=== PATIENT | female | born 1940 | race Caucasian/White ===

== ENCOUNTER 2020-04-10 13:00 | Emergency (ER) | payer MEDICARE, OTHER, SELFPAY ==
[2020-04-10 13:02] VITALS: BP 155/82; PULSE 70; RESP 15; TEMP 37.1; O2SAT 100; BMI 20.5
--- NOTE | 2020-04-10 13:27 | XR_ITS ---
WS: [id number] EXAM: AP CHEST: PORTABLE UPRIGHT DATE OF EXAM: 04/10/2020, 1340 hours COMPARISON: Chest x-ray from 05/04/2019 HISTORY: Patient is 79 years old with a fever. FINDINGS: The cardiac silhouette is normal in size. The mediastinal contours show calcified plaque in the ao rta. Hilar regions are normal.. The pulmonary vascularity is normal. The lungs are clear of infilt rate. There is no effusion or pneumothorax. No acute bony abnormality is seen. XR/XR chest 1V portable [id number] IMPRESSION: No acute pulmonary disease.
--- NOTE | 2020-04-10 13:28 | ECG_ITS ---
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 Measurements Intervals [place] Rate: 87 P: 67 MS: 117 QRS: 5 QRSD: 98 T: 91 QT: 352 QTc: 425 Interpretive Statements SINUS RHYTHM WITH SHORT MS INTERVAL POSSIBLE LEFT ATRIAL ENLARGEMENT [-0.1mV P WAVE IN V1/V2] POSSIBLE SEPTAL MYOCARDIAL INFARCTION , OF INDETERMINATE AGE [30 ms Q WAVE IN V1/V2] MODERATE T-WAVE ABNORMALITY, CONSIDER LATERAL ISCHEMIA [-0.1+ mV T WAVE IN I/aVL/V5/V6] Compared to ECG 05/04/2019 13:58:49 Short MS interval now present T-wave abnormality now present Possible ischemia now present Myocardial infarct finding still present Electronically Signed On 04-10-2020 18:18:07 CDT by Osmany Brizuela M.D. [id number]
[2020-04-10 14:19] LABS: Basophils % 0.2 %; Eosinophils % 0.3 %; Hematocrit 38.7 % (37.0-47.0); Hemoglobin 11.6 g/dL (11.5-15.3); Lymphocytes % 11.3 %; Mean Corpuscular Hemoglobin 29.5 pg (28.0-34.0); Mean Corpuscular Volume 98.5 fL (81-99); Mean Platelet Volume 9.8 fL (7.4-10.4); Monocytes # 1.1 10^3/uL (0.2-0.9); Monocytes % 13.3 %; Neutrophils # 6.39 10^3/uL (1.8-7.7); Neutrophils % 74.6 %; Nucleated Red Blood Cells % 0 %; Platelet Count 240 10^3/cmm (130-400); Red Blood Count 3.93 10^6/uL (4.1-5.3); Red Cell Distribution Width 13.4 % (12.1-15.1); White Blood Count 8.6 10^3/uL (4.0-10.0)
[2020-04-10 14:32] LABS: Add Urine Microscopic? YES; Bilirubin Urine Neg (NEGATIVE); Blood Urine Neg (Negative); Glucose Urine UA Norm (Normal); Ketones Urine Negative (Negative); Leukocyte Esterase Urine Negative (Negative); Nitrate Urine Negative (Negative); Protein Urine Neg (Negative); Urine Appearance Hazy (CLEAR); Urine Color Yellow (Yellow); Urobilinogen Urine 1 mg/dL (Negative); pH Urine 5 (5-7)
[2020-04-10 14:34] LABS: Add Urine Culture? No; Amorphous Sediment Urine 3+; Bacteria Urine TRACE; Mucus Urine TRACE
[2020-04-10 14:45] LABS: Alanine Aminotransferase 11 U/L (0-33); Albumin Level 3.6 g/dL (3.5-5.2); Alkaline Phosphatase 64 IU/L (35-105); Anion Gap 13.1 (5-19); Aspartate Amino Transferase 17 U/L (0-32); Blood Urea Nitrogen 28 mg/dL (8-23); Calcium 8.9 mg/dL (8.5-10.5); Carbon Dioxide 26 mmol/L (22-29); Chloride 114 mmol/L (98-107); Globulin 2.8 g/dL (1.3-4.6); Glucose 114 mg/dL (65-115); Lactic Sepsis W/Reflex 1.2 mmol/L (0.5-2.2); Osmolality Calculated 306 mOsm/kg (285-295); Potassium 4.1 mmol/L (3.5-5.1); Sodium 149 mmol/L (136-145); Total Bilirubin 0.4 mg/dL (0.15-1.2); Total Protein 6.4 g/dL (6.6-8.7)
[2020-04-10 14:46] LABS: Troponin(5th) Baseline 32 ng/L (0-10)
--- NOTE | 2020-04-10 15:28 | ECG_ITS ---
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 Measurements Intervals [place] Rate: 79 P: 55 DE: 125 QRS: 12 QRSD: 96 T: 97 QT: 387 QTc: 444 Interpretive Statements SINUS RHYTHM POSSIBLE LEFT ATRIAL ENLARGEMENT [-0.1mV P WAVE IN V1/V2] INCOMPLETE RIGHT BUNDLE BRANCH BLOCK [90+ ms QRS DURATION, TERMINAL R IN V1/V2, 40+ ms S IN I/aVL/V4/V5/V6] POSSIBLE LEFT VENTRICULAR HYPERTROPHY [VOLTAGE CRITERIA PLUS LAE OR QRS WIDENING] POSSIBLE SEPTAL MYOCARDIAL INFARCTION , OF INDETERMINATE AGE [30 ms Q WAVE IN V1/V2] Compared to ECG 04/10/2020 13:51:20 T-wave abnormality no longer present Possible ischemia no longer present Myocardial infarct finding still present Electronically Signed On 04-11-2020 12:05:13 CDT by Osmany Brizuela M.D. [id number] crow
[2020-04-10 16:51] LABS: Troponin 5 2HR 32.47 ng/L (0-10); Troponin 5 2HR Delta 0.47 ABS# (0-10)
[2020-04-10 17:10] VITALS: BP 202/75; PULSE 70; RESP 16; O2SAT 94
--- NOTE | 2020-04-10 18:31 | ED_ITS ---
HPI - Altered Mental Status General: Chief Complaint: Fever Stated Complaint: GENERAL WEAKNESS Time Seen by Provider: 04/10/20 13:26 History of Present Illness: HPI narrative: This patient is a 79-year-old female who is a resident at [facility]. She has a history of advanced dementia. She was sent to the ED today with decreased activity for the past 2 days. She has had poor intake of food and fluids. She has had intermittent low-grade fevers. No cough. She was tested for COVID a couple of months ago when there [facility]. There have been no other positives and she has had no exposures since then. MD complaint: altered mental status and decreased responsiveness Onset (ago): day(s) (2) Timing confirmed by: caregiver Severity: severe Consistency of symptoms: Getting Worse Review of Systems General: Reports: ROS unobtainable due to medical condition Physical Exam Const: COMMON NORMALS: no acute distress GENERAL APPEARANCE: comfortable and well kempt HENMT: HEAD & SCALP: normal to inspection FACE & SINUS: normal facial exam Eye: GENERAL EYE: appearance normal, both eyes and all related structures Neck/C-Spine: COMMON NORMALS: supple, no meningeal signs and no JVD Chest: COMMONS NORMALS: normal inspection of the chest Resp: COMMON NORMALS: normal respiratory effort, No use of accessory muscles and clear to auscultation bilaterally AUSCULTATION: clear to auscultation bilaterally Cardio: COMMON NORMALS: no JVD, regular rate, regular rhythm and No murmurs present (Cardio) RATE: regular rate RHYTHM: regular rhythm GI: COMMON NORMALS: Normal to inspection, nondistended, normoactive bowel sounds present, Soft to palpation and non-tender INSPECTION: Yes normal to inspection AUSCULTATION: Yes normoactive bowel sounds PALPATION: Yes Soft to palpation Back/Pelvis: COMMON NORMALS: thoracic and lumbar spine normal to inspection Extremity: COMMON NORMALS: normal to inspection Neuro: COMMON NORMALS: moves all extremities, no focal motor deficits and no sensory deficits noted MENINGEAL SIGNS: Yes no meningeal signs Psych: APPEARANCE: Yes well kempt SPEECH: Yes minimal, Yes soft and Yes Other speech symptoms (Quietly mumbling) Skin: COMMON NORMALS: no rashes or lesions noted and turgor normal GENERAL SKIN EXAM: no rashes or lesions noted and turgor normal Course ED course: Patient's vital signs were fine in the ED. She had no fever but had been given Tylenol prior to coming in. I spoke with the patient's sister who is her DURABLE POWER OF FLAME PLANER. She informed me of the patient's baseline mental status and it really does not sound particularly different from what she is today. The sister said that she is not surprised she is dehydrated because she does not think the patient even knows when she is hungry or thirsty. She said she does not carry on a conversation. She mumbles softly under her breath but does not seem to interact with anyone. [facility] the [facility] and he said she normally is confused and not particularly verbal but is typically very active. She has had much less activity in the past few days. He also says it is fairly normal for her to eat and drink well. The patient sister is interested in pursuing hospice or comfort care. It sounds like the patient has very end-stage dementia. I spoke with Dr. Mariana Chinchilla about this as well and she agrees. We [facility] the [facility] for [facility]. She did get some IV fluids here in the department for her dehydration. Vital Signs: Vital signs: Vital Signs Temperature 98.7 F 04/10/20 13:02 Pulse Rate 70 04/10/20 17:10 Respiratory Rate 16 04/10/20 17:10 Blood Pressure 202/75 04/10/20 17:10 Pulse Oximetry 94 04/10/20 17:10 MDM - Altered Mental Status MDM Narrative: Medical decision making narrative: UTI, pneumonia, electrolyte abnormality, progression of dementia, dehydration, other infectious etiology Lab Data: Labs: Lab Results 04/10/20 04/10/20 04/10/20 Range/Units 13:55 14:10 14:10 WBC 8.6 (4.0-10.0) 10^3/ uL RBC 3.93 L (4.1-5.3) 10^6/u L Hgb 11.6 (11.5-15.3) g/dL Hct 38.7 (37.0-47.0) % MCV 98.5 (81-99) fL MCH 29.5 (28.0-34.0) pg MCHC 30.0 (30.0-36.0) g/dL RDW 13.4 (12.1-15.1) % Plt Count 240 (130-400) 10^3/c mm MPV 9.8 (7.4-10.4) fL Neut % (Auto) 74.6 % Lymph % (Auto) 11.3 % [place] % (Auto) 13.3 % Eos % (Auto) 0.3 % Baso % (Auto) 0.2 % Neut # (Auto) 6.39 (1.8-7.7) 10^3/u L Lymph # (Auto) 1.0 (0.8-4.8) 10^3/u L [place] # (Auto) 1.1 H (0.2-0.9) 10^3/u L Eos # (Auto) 0.0 (0.0-0.8) 10^3/u L Baso # (Auto) 0.0 (0.0-0.1) 10^3/u L Nucleated RBC % (a uto) 0 % Nucleated RBCs # 0.0 /100WBC Sodium 149 H (136-145) mmol/L Potassium 4.1 (3.5-5.1) mmol/L Chloride 114 H (98-107) mmol/L Carbon Dioxide 26 (22-29) mmol/L Anion Gap 13.1 (5-19) BUN 28 H (8-23) mg/dL Creatinine 1.1 H (0.5-0.9) mg/dL GFR Calculation Not Reportable Glucose 114 (65-115) mg/dL Calculated Osmolal ity 306 H (285-295) mOsm/k g Lactic Acid (0.5-2.2) mmol/L Calcium 8.9 (8.5-10.5) mg/dL Total Bilirubin 0.4 (0.15-1.2) mg/dL AST 17 (0-32) U/L ALT 11 (0-33) U/L Alkaline Phosphata se 64 (35-105) IU/L Troponin T Baselin e (0-10) ng/L Troponin T 120 Min ewiiaapaayp (0-10) ng/L Delta Troponin T (0-10) ABS# Total Protein 6.4 L (6.6-8.7) g/dL Albumin 3.6 (3.5-5.2) g/dL Globulin 2.8 (1.3-4.6) g/dL Urine Color Yellow (Yellow) Urine Appearance Hazy A (CLEAR) Urine pH 5 (5-7) Ur Specific Gravit y 1.030 (1.005-1.030) Urine Protein Neg (Negative) Urine Glucose (UA) Norm (Normal) Urine Ketones Negative (Negative) Urine Blood Neg (Negative) Urine Nitrate Negative (Negative) Urine Bilirubin Neg (NEGATIVE) Urine Urobilinogen 1 H (Negative) mg/dL Ur Leukocyte Janiya ase Negative (Negative) Urine RBC None (0-2) /hpf Urine WBC 5-10 H (0-5) /hpf Ur Squamous Epith Cells None (0-5) Amorphous Sediment 3+ Urine Bacteria Trace (NONE) Urine Mucus Trace 04/10/20 04/10/20 04/10/20 Range/Units 14:10 14:10 16:10 WBC (4.0-10.0) 10^3/ uL RBC (4.1-5.3) 10^6/u L Hgb (11.5-15.3) g/dL Hct (37.0-47.0) % MCV (81-99) fL MCH (28.0-34.0) pg MCHC (30.0-36.0) g/dL RDW (12.1-15.1) % Plt Count (130-400) 10^3/c mm MPV (7.4-10.4) fL Neut % (Auto) % Lymph % (Auto) % [place] % (Auto) % Eos % (Auto) % Baso % (Auto) % Neut # (Auto) (1.8-7.7) 10^3/u L Lymph # (Auto) (0.8-4.8) 10^3/u L [place] # (Auto) (0.2-0.9) 10^3/u L Eos # (Auto) (0.0-0.8) 10^3/u L Baso # (Auto) (0.0-0.1) 10^3/u L Nucleated RBC % (a uto) % Nucleated RBCs # /100WBC Sodium (136-145) mmol/L Potassium (3.5-5.1) mmol/L Chloride (98-107) mmol/L Carbon Dioxide (22-29) mmol/L Anion Gap (5-19) BUN (8-23) mg/dL Creatinine (0.5-0.9) mg/dL GFR Calculation Glucose (65-115) mg/dL Calculated Osmolal ity (285-295) mOsm/k g Lactic Acid 1.2 (0.5-2.2) mmol/L Calcium (8.5-10.5) mg/dL Total Bilirubin (0.15-1.2) mg/dL AST (0-32) U/L ALT (0-33) U/L Alkaline Phosphata se (35-105) IU/L Troponin T Baselin e 32 H (0-10) ng/L Troponin T 120 Min ewiiaapaayp 32.47 H (0-10) ng/L Delta Troponin T 0.47 (0-10) ABS# Total Protein (6.6-8.7) g/dL Albumin (3.5-5.2) g/dL Globulin (1.3-4.6) g/dL Urine Color (Yellow) Urine Appearance (CLEAR) Urine pH (5-7) Ur Specific Gravit y (1.005-1.030) Urine Protein (Negative) Urine Glucose (UA) (Normal) Urine Ketones (Negative) Urine Blood (Negative) Urine Nitrate (Negative) Urine Bilirubin (NEGATIVE) Urine Urobilinogen (Negative) mg/dL Ur Leukocyte Janiya ase (Negative) Urine RBC (0-2) /hpf Urine WBC (0-5) /hpf Ur Squamous Epith Cells (0-5) Amorphous Sediment Urine Bacteria (NONE) Urine Mucus Discharge Plan Discharge Patient Disposition: er [facility] Clinical Impression: Dehydration Dementia Qualifiers: Dementia type: unspecified type Dementia behavioral disturbance: with behav ioral disturbance Qualified Code(s): F03.91 - Unspecified dementia with behavioral disturbance Condition: Stable Referrals: Mariana Chinchilla MD [Primary Care Provider] - Discharge Diet: Usual diet Discharge Activity: Resume usual activity Patient Instructions: Hospice Care, Dementia (ED) Activity Restrictions/Additional Instructions: The patient's DURABLE POWER OF FLAME PLANER and Dr. Chinchilla are both in agreement that Ms. Gilmore will be placed on comfort care. 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
== END 2020-04-10 17:22 ==
PROVIDERS: Emergency Provider Emergency Medicine; PCP Family Medicine
DX: E86.0 Dehydration (principal); F03.91 Unspecified dementia, unspecified severity, with behavioral disturbance
CPT/HCPCS: 12345; 36415; 71045; 80053; 81001; 83605; 84484; 85025; 93005; 99283

== ENCOUNTER 2020-09-15 11:51 | Outpatient (CLI) | payer MEDICARE, OTHER, SELFPAY ==
[2020-09-15 13:56] LABS: Basophils # 0.1 10^3/uL (0.0-0.1); Basophils % 0.4 %; Eosinophils % 0.3 %; Hemoglobin 10.5 g/dL (11.5-15.3); Lymphocytes # 1.1 10^3/uL (0.8-4.8); Lymphocytes % 8.9 %; Mean Corpuscular HGB Conc 29.2 g/dL (30.0-36.0); Mean Corpuscular Hemoglobin 27.4 pg (28.0-34.0); Mean Platelet Volume 9.5 fL (7.4-10.4); Monocytes % 7.9 %; Neutrophils # 9.88 10^3/uL (1.8-7.7); Nucleated Red Blood Cells % 0 %; Platelet Count 419 10^3/cmm (130-400); Red Blood Count 3.83 10^6/uL (4.1-5.3); Red Cell Distribution Width 13.4 % (12.1-15.1); White Blood Count 12.1 10^3/uL (4.0-10.0)
== END 2020-09-15 11:52 | disposition home or self-care (01) ==
PROVIDERS: PCP Family Medicine; Visit Provider Nurse Practitioner Family
DX: D70.9 Neutropenia, unspecified (principal)
CPT/HCPCS: 85025